=== PATIENT | male | born 1975 | race Two or more races ===

== ENCOUNTER 2016-08-12 10:02 | Emergency (ER) | payer OTHER ==
[2016-08-12 10:12] VITALS: BP 135/81; PULSE 56; TEMP 97.5; BMI 26.6
[2016-08-12] MEDS ORDERED: IBUPROFEN 600 MG TABLET (FP) PO ONE ×2 (11:14→11:16)
--- NOTE | 2016-08-12 11:14 | PDOC ---
History of Present Illness - General Chief Complaint: Back Pain Stated Complaint: BACK PAIN Time Seen by Provider: 08/12/16 11:04 History Source: Patient Exam Limitations: No Limitations - History of Present Illness Initial Comments: CHIEF COMPLAINT: 40 y/o afebrile male with no significant PMH c/o left low back pain since yesterday. 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 He denies trauma to back, f/c, n/v/d, CP, SOB, abd pain, radiation of pain into legs, hematuria, dysuria. The patient has not taken anything for the pain. REVIEW OF SYSTEMS: GENERAL/CONSTITUTIONAL: No fever/chills. No weakness. No weight change. HEAD, EYES, EARS, NOSE AND THROAT: No change in vision. No ear pain or discharge. No sore throat. CARDIOVASCULAR: No chest pain or shortness of breath. RESPIRATORY: No cough, wheezing, or hemoptysis. GASTROINTESTINAL: No nausea, vomiting, diarrhea, abd pain. GENITOURINARY: No dysuria, frequency, or change in urination. MUSCULOSKELETAL: No joint or muscle swelling or pain. No neck pain. +low back pain SKIN: No rash or easy bruising. NEUROLOGIC: No headache, vertigo, loss of consciousness, or loss of sensation. PHYSICAL EXAM: GENERAL: The patient is awake, alert, and fully oriented, in no acute distress. He is ambulatory and well appearing, in NAD or obvious discomfort. HEAD: Normal with no signs of trauma. ENT: Pupils equal, round and reactive to light, extraocular movements intact, sclera anicteric, conjunctiva clear. Neck supple. ABDOMEN: Soft, non-distended, non-tender even to deep palpation, no hepatomegaly or splenomegaly, no masses. BACK: Reproducible pain with palpation of left lower lumbar paravertebral muscles. reproduction of pain with flexion of lumbar spine. No CVA TTP b/l. EXTREMITIES: Normal range of motion, no edema. NEUROLOGICAL: Normal speech, normal gait. CN II-XII grossly intact. PSYCH: Normal mood, normal affect. SKIN: Warm, dry, normal turgor, no rashes or lesions noted. Past History - Past Medical History Allergies/Adverse Reactions: Allergies Allergy/AdvReac Type Severity Reaction Status Date / Time No Known Allergies Allergy Verified 08/12/16 10:08 Home Medications: Ambulatory Orders NK [No Known Home Medication] 08/12/16 Other medical history: none - Psycho/Social/Smoking Cessation Hx Anxiety: No Suicidal Ideation: No Smoking Status: Yes Smoking History: Current every day smoker Have you smoked in the past 12 months: Yes Number of Cigarettes Smoked Daily: 2 Information on smoking cessation initiated: Yes 'Breaking Loose' booklet given: 08/12/16 Hx Alcohol Use: Yes (weekend) Drug/Substance Use Hx: No Substance Use Type: None *Physical Exam - Vital Signs Last Vital Signs Temp Pulse Resp BP Pulse Ox 97.5 F L 56 L 18 135/81 100 08/12/16 10:09 08/12/16 10:09 08/12/16 10:09 08/12/16 10:09 08/12/16 10:09 Medical Decision Making - Medical Decision Making A/P: 40 y/o male with 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 Plan is to give PO Motrin and d/c to home. Instructed him to take motrin every 6 hours with food for back pain, apply heating pad, and follow proper lifting techniques while at work. Suggested he f /u with Dr. Calvo as soon as possible and return to the ER with any worsening or concerning symptoms. The patient verbalizes understanding of all instructions, has no further questions and is awaiting discharge. *DC/Admit/Observation/Transfer Diagnosis at time of Disposition: Muscle strain Low back pain Qualifiers: Chronicity: acute Back pain laterality: left Sciatica presence: without sciatica Qualified Code(s): M54.5 - Low back pain - Discharge Dispostion Disposition: HOME Condition at time of disposition: Good - Referrals Referrals: Hakeem Calvo MD [Staff Physician] - - Patient Instructions Printed Discharge Instructions: DI for Low Back Pain, DI for Muscle Strain Additional Instructions: Discharge Instructions: -Take 600mg of over the counter Ibuprofen every 6 hours with food for back pain -Apply heating pad to the affected area -Stretch your back multiple times per day -Avoid heavy lifting and twisting until symptoms improve -Follow up with Dr. Calvo if no improvement in 1 week. Print Language: LIBERIAN - Post Discharge Activity Work/School Note: Back to Work
== END 2016-08-12 11:21 | disposition home or self-care (01) ==
LOC: JERFT 10:02
DX: M54.5 Low back pain (principal); S39.012A Strain of muscle, fascia and tendon of lower back, initial encounter; X58.XXXA Exposure to other specified factors, initial encounter; Y93.89 Activity, other specified; Y92.9 Unspecified place or not applicable; F17.210 Nicotine dependence, cigarettes, uncomplicated
CPT/HCPCS: 99281-25

== ENCOUNTER 2024-09-13 17:09 | Emergency (ER) | payer OTHER ==
[2024-09-13 17:16] VITALS: BMI 25.1
[2024-09-13] MEDS ORDERED: MECLIZINE HCL 25 MG TABLET (FP) ONE (19:01)
[2024-09-13] MEDS ORDERED: ONDANSETRON 4 MG/2 ML VIAL ONE (19:01)
[2024-09-13 19:04] LABS: VENOUS BASE EXCESS -1.6 mmol/L (-2-2); VENOUS O2 SATURATION 40.2 % (70-80); VENOUS PCO2 54.4 mmHg (38-52); VENOUS PH 7.296 (7.310-7.410)
[2024-09-13 19:07] LABS: BASO % 0.2 % (0-2.0); EOS % 0.1 % (0-4.5); HEMATOCRIT 46.2 % (35.4-49); HEMOGLOBIN 15.3 GM/dL (11.7-16.9); LYMPH % 10.9 % (8-40); MCHC 33.2 g/dl (32.0-35.9); MEAN CELL VOLUME 81.4 fl (80-96); MEAN PLT VOLUME 7.9 fl (7.5-11.1); MONO % 5.1 % (3.8-10.2); NEUT % 83.7 % (42.8-82.8); PLATELET COUNT 217 10^3/uL (134-434); RBC 5.68 M/mm3 (4.00-5.60); RDW 13.6 % (11.9-15.9); WHITE BLOOD COUNT 13.5 K/mm3 (4.0-10.0)
[2024-09-13 19:14] LABS: INR 1.06 (0.83-1.09); PROTHROMBIN TIME (PATIENT) 11.6 SEC (9.7-13.0)
[2024-09-13] MEDS: MECLIZINE HCL 25 MG TABLET (FP) PO ONE (19:16)
[2024-09-13] MEDS: ONDANSETRON 4 MG/2 ML VIAL IVPUSH ONE (19:16)
[2024-09-13] MEDS: SODIUM CHLORIDE 0.9% 500 ML INFUS.BAG IV ONE (19:16)
[2024-09-13 19:23] VITALS: TEMP 97.6
[2024-09-13 19:24] LABS: CHLORIDE 101 mmol/L (98-107); POTASSIUM 4.1 mmol/L (3.5-5.1); SODIUM 138 mmol/L (136-145)
[2024-09-13 19:26] LABS: ALBUMIN 4.1 g/dl (3.4-5.0); ANION GAP 7 mmol/L (4-13); BLOOD UREA NITROGEN 13.6 mg/dL (7-18); CALCIUM 9.3 mg/dL (8.5-10.1); CO2 29 mmol/L (21-32); MAGNESIUM 1.7 mg/dL (1.8-2.4)
[2024-09-13 19:27] LABS: GLUCOSE,RANDOM 138 mg/dL (74-106)
[2024-09-13 19:29] LABS: SGOT/AST 19 U/L (15-37); SGPT/ALT 45 U/L (13-61)
[2024-09-13 19:31] LABS: BILIRUBIN,TOTAL 0.3 mg/dL (0.2-1); TOT PROT 7.9 g/dl (6.4-8.2)
[2024-09-13 19:32] LABS: ALK PHOS 77 U/L (45-117)
[2024-09-13 22:15] LABS: VENOUS BASE EXCESS -2.3 mmol/L (-2-2); VENOUS O2 SATURATION 63.7 % (70-80); VENOUS PCO2 45.6 mmHg (38-52); VENOUS PH 7.336 (7.310-7.410)
[2024-09-13 22:42] LABS: LACTIC ACID 2.5 mmol/L (0.4-2.0)
[2024-09-13 23:15] VITALS: BP 150/87; PULSE 84; RESP 20
== END 2024-09-13 23:15 | disposition home or self-care (01) ==
LOC: JER 17:09
PROC: 3E033GC Introduction of Other Therapeutic Substance into Peripheral Vein, Percutaneous Approach (ICD-10-PCS; principal; 2024-09-13)
DX: R42 Dizziness and giddiness (principal); R11.2 Nausea with vomiting, unspecified; R51.9 Headache, unspecified; R53.83 Other fatigue; R07.9 Chest pain, unspecified; Z20.822 Contact with and (suspected) exposure to COVID-19
CPT/HCPCS: 0241U-QW; 36415; 70450-TC; 70496-TC; 70498-TC; 71045-TC-FY; 80053; 80307; 82550; 82803; 82962; 83605; 83690; 83735; 84100; 84484; 85025; 85610; 85730; 86850; 86900; 86901; 93005; 93010; 99285-25